=== PATIENT | female | born 1940 | race Caucasian/White ===

== ENCOUNTER 2017-03-23 09:06 | Day surgery (SDC) | payer MEDICARE ==
[~2017-03-23 09:06] MED LIST: Bupivacaine 0.5%/EPINEPHrine 1:200,000 50 ML MDV ONE
[2017-03-23] MEDS ORDERED: Sodium Chloride 0.9% 1,000 ML IV SCH (09:30)
[2017-03-23] MEDS ORDERED: fentaNYL 250 MCG/5 ML SDV ONE (09:35)
[2017-03-23] MEDS ORDERED: Rocuronium 50 MG/5 ML Vial ONE (09:37)
[2017-03-23] MEDS ORDERED: Succinylcholine/Normal Saline 200 MG/10 ML Syringe ONE (09:37)
[2017-03-23] MEDS ORDERED: Ondansetron 4 MG/2 ML SDV ONE (09:37)
[2017-03-23] MEDS ORDERED: Dexamethasone 4 MG/ML SDV ONE (09:37)
[2017-03-23] MEDS ORDERED: Propofol 200 MG/20 ML SDV ONE (09:37)
[2017-03-23] MEDS ORDERED: Neostigmine Methylsulfate 1 MG/ML 5 ML Syringe ONE (09:37)
[2017-03-23] MEDS ORDERED: metroNIDAZOLE/Normal Saline 500 MG in Premix Bag 1 BAG IV ONE (10:00)
[2017-03-23] MEDS ORDERED: Ciprofloxacin in D5W 400 MG in Premix Bag 1 BAG IV ONE ×2 (10:00)
[2017-03-23] MEDS ORDERED: Ketorolac 60 MG/2 ML SDV ONE (10:14)
[2017-03-23] MEDS ORDERED: hydrOXYzine HCl 50 MG/ML SDV IM ONE (13:51)
[2017-03-23] MEDS ORDERED: fentaNYL 100 MCG/2 ML SDV IVPUSH ONE (14:02)
[2017-03-23] MEDS ORDERED: Morphine 2 MG/ML Syringe IV PRN (15:29)
[2017-03-23] MEDS ORDERED: oxyCODONE 5 MG Tab PO PRN (15:30)
[2017-03-23 15:57] VITALS: BP 137/86
--- NOTE | 2017-03-26 07:49 | OR ---
DATE OF PROCEDURE: 03/23/2017 PREOPERATIVE DIAGNOSIS: Abdominal Adhesions POSTOPERATIVE DIAGNOSIS: Abdominal Adhesions PROCEDURES: 1. Lysis of adhesions, abdominal, laparoscopic, [id number]. 2. Exploratory laparotomy. FINDINGS: Adhesions causing chronic pain with respect to the midline and adherence to small bowel. COMPLICATIONS: None. FEED HOUSE SUPERVISOR: None. ANESTHESIA: General/local. INDICATIONS: A 76-year-old female, who has had lysis of adhesions performed prior, which alleviated her pain. She requires similar procedure. Risks, benefits, alternatives, and limitations, including, but not limited to infection, bleeding, and injury to abdominal structures such as bowel, bladder, blood vessels were explained to the patient, and she wishes to proceed. PROCEDURE IN DETAIL: The patient was placed in supine position. The abdomen was prepped and draped in the right midabdomen. A Veress needle was used to enter the abdomen without abnormality. This was then insufflated. This was followed by an Optiview trocar, which showed no evidence of enterotomy or injury. After this, 2 additional 5-mm ports were entered under direct visualization. Diagnostic laparoscopy was then commenced. The patient is known to have adhesions in both left and right midabdomen, but mostly associated with the midline hernia repair. Lysis of adhesions was performed using a combination of electrocautery and sharp and blunt dissection. Minimal bleeding was controlled with electrocautery. At no time was the bowel or bladder interacted any way with respect to energy sources. The bowel was ran in its entirety. There was no evidence of obstruction or abnormality except for adhesion that is associated with the midline, which was transected previously. No evidence of enterotomy or other injury was noted. The air was deflated. The wounds were closed with 3-0 Vicryl and 4-0 Vicryl interrupted running fashion, Dermabond was applied. The patient tolerated the procedure well. Ricardo Rodríguez MD /[id number]
== END 2017-03-23 17:30 | disposition home or self-care (01) ==
LOC: JP.SDS 09:06 → EDSTATUS 13:30 → JP.2SS 14:45 → UNDOADMIN 15:25 → UNDODISIN 17:30 → JP.SDS 17:30
PROVIDERS: ATTEND Surgery
PROC: 0DN84ZZ Release Small Intestine, Percutaneous Endoscopic Approach (ICD-10-PCS; principal; 2017-03-23)
DX: K66.0 Peritoneal adhesions (postprocedural) (postinfection) (principal); G89.28 Other chronic postprocedural pain; I70.1 Atherosclerosis of renal artery; I10 Essential (primary) hypertension; E78.5 Hyperlipidemia, unspecified; Z98.0 Intestinal bypass and anastomosis status; Z98.84 Bariatric surgery status; M81.0 Age-related osteoporosis without current pathological fracture
CPT/HCPCS: 49329; A9270; J0744; J1100; J2270; J2405; J2704; J3010; J3410; J7040; J1885

== ENCOUNTER → 2017-12-13 | Day surgery (SDC) | payer MEDICARE, BC ==
[~2017-12-13] MED LIST changes: -Bupivacaine 0.5%/EPINEPHrine 1:200,000 50 ML MDV ONE; +Lactated Ringers 1,000 ML IV SCH; +Propofol 200 MG/20 ML SDV ONE; +ceFAZolin 2 GM in Premix Bag 1 BAG IV ONE
[2017-12-13 11:29] VITALS: BP 153/66
--- NOTE | 2017-12-14 07:38 | OR ---
DATE OF PROCEDURE: 12/13/2017 PROCEDURE: EGD. FINDINGS: 1. Inflammation at the gastrojejunal anastomosis consistent with esophagitis. 2. No evidence of narrowing, stricture, or ulceration with respect to the Kezia-en-Y limb. COMPLICATIONS: None. BROACH OPERATOR: None. PREOPERATIVE DIAGNOSIS: Epigastric pain. POSTOPERATIVE DIAGNOSIS: Epigastric pain. RISKS: Risks, benefits, alternatives, limitations including, but not limited to infection, bleeding, and perforation were explained to the patient and wished to proceed. PROCEDURE IN DETAIL: The patient was placed in left lateral decubitus position. The EGD scope was introduced and advanced atraumatically into the Kezia-en-Y limb. The limb itself showed normal architecture and color. No evidence of inflammation was noted. There was no stricture or narrowing of the gastrojejunal anastomosis. The pouch was appropriately sized albeit a little large, but no evidence of ulceration. The esophagus showed inflammation, consistent with esophagitis in a plaque-like appearance. This was not pathognomic consisted with yeast thrush infection; however, cold biopsy forceps were used to biopsy this area. The remainder of the esophagus was normal. The patient tolerated the procedure well. Ricardo Rodríguez MD /[id number]
== END ==
LOC: JP.SDS 08:06
PROVIDERS: ATTEND Surgery
DX: K21.0 Gastro-esophageal reflux disease with esophagitis (principal); Z88.0 Allergy status to penicillin; Z88.8 Allergy status to other drugs, medicaments and biological substances
CPT/HCPCS: 88305; 88312; J0690; J2704; J7120

== ENCOUNTER 2017-12-14 15:15 | Emergency (ER) | payer MEDICARE, BC ==
[2017-12-14 15:35] VITALS: BP 165/89
--- NOTE | 2017-12-14 16:09 | EDM.PDOC ---
ED HPI GENERAL MEDICAL PROBLEM - General Chief Complaint: General Stated Complaint: HAD ARM & CHEST PAIN/WANTS TO GET IN SOONER Time Seen by Provider: 12/14/17 15:45 Source of Information: Reports: Patient, Family History Limitations: Reports: No Limitations - History of Present Illness INITIAL COMMENTS - FREE TEXT/NARRATIVE: 77-year-old female that's been having intermittent chest pain, some difficulty with swallowing who had an EGD performed yesterday without any real significant findings. She called her agricultural economics professor to ask if she could get in earlier than next month when she has her normal appointment. She told the agricultural economics professor she had some significant left arm pain for about 4 hours 2 days ago, so her agricultural economics professor told her to come here for evaluation. She has had no symptoms since yesterday. She feels fine. Onset: Sudden (Pain started suddenly 2 mornings ago) Duration: Hour(s): (Pain lasted for 5 hours and then resolved abruptly) Location: Reports: Upper Extremity, Left Quality: Reports: Ache, Throbbing Severity: Moderate Worsens with: Reports: Movement Associated Symptoms: Reports: Shortness of Breath. Denies: Chest Pain, Cough, Fever/Chills, Headaches, Nausea/Vomiting - Related Data Allergies Allergy/AdvReac Type Severity Reaction Status Date / Time hydrocodone [Hydrocodone] Allergy Itching Verified 12/14/17 15:33 Penicillins Allergy Swelling Verified 12/14/17 15:33 Home Meds: Home Meds Losartan [Cozaar] 50 mg PO BEDTIME 06/07/13 [History] Nitroglycerin [Nitrostat] 0.4 mg SL ASDIRECTED PRN 06/07/13 [History] Amitriptyline [Elavil] 25 mg PO BEDTIME 01/09/14 [History] Aspirin [Adult Low Dose Aspirin EC] 81 mg PO DAILY 01/09/14 [History] Cyanocobalamin (Vitamin B-12) [Vitamin B-12] 1,000 mcg SL DAILY 01/09/14 [ History] Magnesium Oxide [Magnesium] 400 mg PO BID 01/09/14 [History] Sertraline [Zoloft] 150 mg PO DAILY 01/09/14 [History] Multivits,Th w-Fe,Other Min [Qqzwxivq-H-H with Minerals] 1 tab PO BID 09/22/15 [ History] Calcium Carbonate/Vitamin D3 [Calcium 500 + Vit D 400] 1 each PO DAILY 03/21/17 [History] Clopidogrel [Plavix] 75 mg PO DAILY 12/11/17 [History] Levothyroxine [Synthroid] 50 mcg PO ACBREAKFAST 12/11/17 [History] Melatonin 5 mg PO BEDTIME 12/11/17 [History] Metoprolol Succinate [Toprol XL] 25 mg PO DAILY 12/11/17 [History] Pantoprazole Sodium [Protonix] 40 mg PO DAILY 12/11/17 [History] atorvaSTATin [Lipitor] 80 mg PO BEDTIME 12/11/17 [History] Past Medical History HEENT History: Reports: Cataract, Impaired Vision Cardiovascular History: Reports: Hypertension, Stents Other Cardiovascular History: 1 stent- 2006 Gastrointestinal History: Reports: GERD, Hiatal Hernia Genitourinary History: Reports: UTI, Recurrent Other Genitourinary History: 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: Musculoskeletal History: Reports: Neck Pain, Chronic, Osteoarthritis Neurological History: Reports: Headaches, Chronic Psychiatric History: Reports: Depression Endocrine/Metabolic History: Reports: Osteoporosis Hematologic History: Reports: Blood Transfusion(s) Immunologic History: Reports: None - Infectious Disease History Infectious Disease History: Reports: Chicken Pox, Measles, Mumps - Past Surgical History HEENT Surgical History: Reports: Cataract Surgery Cardiovascular Surgical History: Reports: Coronary Artery Stent GI Surgical History: Reports: Bariatric Procedure, Colonoscopy, EGD, Hernia, Abdominal, Ivet Fundoplication, Other (See Below) Other GI Surgeries/Procedures: adhesions surgery after ivet and rerouting of the esophgus, partial gastrectomy and RNY. Laparoscopic ventral Hernia repair w / lysis of adhesions 03/16/2016 Female Surgical History: Reports: Hysterectomy, Salpingo-Oophorectomy Neurological Surgical History: Reports: Other (See Below) Other Neurological Surgeries/Procedures: cervical fusion Musculoskeletal Surgical History: Reports: Knee Replacement Social & Family History - Tobacco Use Smoking Status *Q: Never Smoker Second Hand Smoke Exposure: No - Caffeine Use Caffeine Use: Reports: Coffee - Alcohol Use Days Per Week of Alcohol Use: 0 - Recreational Drug Use Recreational Drug Use: No ED ROS GENERAL - Review of Systems Review Of Systems: See Below Constitutional: Denies: Fever, Chills Respiratory: Reports: Shortness of Breath (Some mild shortness of breath when she had her pain) Cardiovascular: Reports: Chest Pain (Intermittent chest pain none currently) GI/Abdominal: Reports: Other (Difficulty with swallowing for the past several months). Denies: Abdominal Pain Skin: Reports: Bruising (Some bruising on her arms from recent IVs) Neurological: Denies: Headache Psychiatric: Reports: No Symptoms ED EXAM, GENERAL - Physical Exam Exam: See Below Exam Limited By: No Limitations General Appearance: Alert, No Apparent Distress Respiratory/Chest: No Respiratory Distress, Lungs Clear Cardiovascular: Regular Rate, Rhythm, Other (Monitor shows normal sinus rhythm) . No: Extra Beats GI/Abdominal: Soft, Non-Tender Extremities: No: Pedal Edema Neurological: Alert, Oriented Course - Vital Signs Last Recorded V/S: Last Vital Signs Temp 97.3 F 12/14/17 15:36 Pulse 80 12/14/17 15:36 Resp 14 12/14/17 15:36 BP 165/89 H 12/14/17 15:36 Pulse Ox 97 12/14/17 15:36 - Orders/Labs/Meds Labs: Laboratory Tests 12/14/17 Range/Units 16:10 Troponin I < 0.017 (0.000-0.056) ng/mL - Re-Assessments/Exams Free Text/Narrative Re-Assessment/Exam: 12/14/17 16:09 Explained to the patient that we can draw a troponin which will tell us if she had an ID 2 days ago, but if it is negative I may not be able to tell her what the pain was. This lab was drawn. 12/14/17 16:39 Troponin was 0. With the symptoms being completely gone it's hard to predict what they were from but it does not appear to be an ID. Patient will follow up as scheduled. Departure - Departure Time of Disposition: 17:11 Disposition: Home, Self-Care 01 Condition: Good Clinical Impression: Left upper limb pain - Discharge Information Instructions: Muscle Pain, Adult Referrals: Ronni Velazquez MD [Primary Care Provider] - Forms: ED Department Discharge Care Plan Goals: Continue your current medications, and recheck as scheduled. You can talk to your agricultural economics professor about an earlier visit and let them know you were checked out from your recent pain.
== END 2017-12-14 17:11 | disposition home or self-care (01) ==
LOC: JP.ED 15:15
DX: M79.622 Pain in left upper arm (principal); I10 Essential (primary) hypertension; K21.9 Gastro-esophageal reflux disease without esophagitis; Z88.0 Allergy status to penicillin; Z88.5 Allergy status to narcotic agent; Z79.82 Long term (current) use of aspirin; Z79.899 Other long term (current) drug therapy
CPT/HCPCS: 36415; 84484; 99285

== ENCOUNTER 2021-03-21 19:47 | Emergency (ER) | payer MEDICARE, BC ==
[2021-03-21 20:34] VITALS: BP 136/71; PULSE 71
--- NOTE | 2021-03-21 21:24 | EDM.PDOC ---
ED HPI GENERAL MEDICAL PROBLEM - General Chief Complaint: Cardiovascular Problem Stated Complaint: LOW BLOOD PRESSURE Time Seen by Provider: 03/21/21 20:00 Source of Information: Reports: Patient, Family History Limitations: Reports: No Limitations - History of Present Illness INITIAL COMMENTS - FREE TEXT/NARRATIVE: 80-year-old female with chronic chest pain, chronic fatigue and weakness is being worked up by oncology, cardiology and several other physicians and is recurring chest pain on a regular basis. Tonight it seemed a little more intense so she took 2 nitroglycerin and became very lightheaded and dizzy. She was just at the doctor earlier today and has another appointment on . No nausea or vomiting, no fever, no cough. Treatments TELEVISION INSPECTOR: Reports: Nitroglycerin - Related Data Allergies Allergy/AdvReac Type Severity Reaction Status Date / Time hydrocodone [Hydrocodone] Allergy Itching Verified 03/21/21 19:55 Penicillins Allergy Swelling Verified 03/21/21 19:55 Home Meds: Home Meds Losartan [Cozaar] 50 mg PO BEDTIME 06/07/13 [History] Nitroglycerin [Nitrostat] 0.4 mg SL ASDIRECTED PRN 06/07/13 [History] Amitriptyline [Elavil] 25 mg PO BEDTIME 01/09/14 [History] Aspirin [Adult Low Dose Aspirin EC] 81 mg PO DAILY 01/09/14 [History] Cyanocobalamin (Vitamin B-12) [Vitamin B-12] 1,000 mcg SL DAILY 01/09/14 [History] Magnesium Oxide [Magnesium] 400 mg PO BID 01/09/14 [History] Multivit-Min/Ferrous Fumarate [Utlmlwar-U-B with Minerals] 1 tab PO BID 06/29/15 [History] Calcium Carbonate/Vitamin D3 [Calcium 500 + Vit D 400] 1 each PO DAILY 03/21/17 [History] Levothyroxine [Synthroid] 50 mcg PO ACBREAKFAST 12/11/17 [History] Melatonin 5 mg PO BEDTIME 12/11/17 [History] Metoprolol Succinate [Toprol XL] 25 mg PO DAILY 12/11/17 [History] Isosorbide Mononitrate [Imdur] 15 mg PO DAILY 03/21/21 [History] amLODIPine [Norvasc] 5 mg PO DAILY 03/21/21 [History] Past Medical History HEENT History: Reports: Cataract, Impaired Vision Cardiovascular History: Reports: Hypertension, Stents Other Cardiovascular History: 1 stent- 2006 Gastrointestinal History: Reports: GERD, Hiatal Hernia Genitourinary History: Reports: UTI, Recurrent Other Genitourinary History: 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: Musculoskeletal History: Reports: Neck Pain, Chronic, Osteoarthritis Neurological History: Reports: Headaches, Chronic Psychiatric History: Reports: Depression Endocrine/Metabolic History: Reports: Osteoporosis Hematologic History: Reports: Blood Transfusion(s) Immunologic History: Reports: None - Infectious Disease History Infectious Disease History: Reports: Chicken Pox, Measles, Mumps - Past Surgical History HEENT Surgical History: Reports: Cataract Surgery Cardiovascular Surgical History: Reports: Coronary Artery Stent GI Surgical History: Reports: Bariatric Procedure, Colonoscopy, EGD, Hernia, Abdominal, Ivet Fundoplication, Other (See Below) Other GI Surgeries/Procedures: adhesions surgery after ivet and rerouting of the esophgus, partial gastrectomy and RNY. Laparoscopic ventral Hernia repair w/ lysis of adhesions 03/16/2016 Female Surgical History: Reports: Hysterectomy, Salpingo-Oophorectomy Endocrine Surgical History: Reports: None Neurological Surgical History: Reports: Other (See Below) Other Neurological Surgeries/Procedures: cervical fusion Musculoskeletal Surgical History: Reports: Knee Replacement Social & Family History - Family History Family Medical History: No Pertinent Family History - Tobacco Use Tobacco Use Status *Q: Never Tobacco User - Caffeine Use Caffeine Use: Reports: Coffee - Recreational Drug Use Recreational Drug Use: No ED ROS GENERAL - Review of Systems Review Of Systems: See Below Constitutional: Reports: Malaise. Denies: Fever, Chills HEENT: Denies: Vision Change Respiratory: Denies: Shortness of Breath Cardiovascular: Reports: Chest Pain. Denies: Palpitations GI/Abdominal: Reports: Decreased Appetite. Denies: Abdominal Pain, Vomiting : Reports: No Symptoms Musculoskeletal: Reports: No Symptoms Skin: Reports: Pallor Neurological: Reports: Dizziness, Weakness Psychiatric: Reports: Anxiety ED EXAM, GENERAL - Physical Exam Exam: See Below Exam Limited By: No Limitations General Appearance: Alert, No Apparent Distress Eye Exam: Bilateral Eye: Normal Inspection Head: Atraumatic Neck: Supple, Non-Tender Respiratory/Chest: No Respiratory Distress, Lungs Clear, Other (I could not reproduce chest wall pain with palpation) Cardiovascular: Regular Rate, Rhythm. No: Tachycardia GI/Abdominal: Normal Bowel Sounds, Soft, Non-Tender Extremities: Normal Inspection. No: Pedal Edema Neurological: Alert, Oriented Course - Vital Signs Last Recorded V/S: Last Vital Signs Temp 97.1 F 03/21/21 19:52 Pulse 71 03/21/21 20:32 Resp 22 H 03/21/21 20:32 BP 136/71 03/21/21 20:32 Pulse Ox 96 03/21/21 20:32 - Orders/Labs/Meds Orders: Active Orders 24 hr Category Date Time Status CBC WITH AUTO DIFF [HEME] Stat Lab 03/21/21 20:28 Results Labs: Laboratory Tests 03/21/21 03/21/21 Range/Units 20:28 20:28 WBC 4.5 (4.5-11.0) K/uL RBC 3.63 (3.30-5.50) M/uL Hgb 8.7 L D (12.0-15.0) g/dL Hct 29.1 L (36.0-48.0) % MCV 80 (80-98) fL MCH 24 L (27-31) pg MCHC 30 L (32-36) % Plt Count 163 (150-400) K/uL Add Manual Diff Yes Sodium 141 (140-148) mmol/L Potassium 5.1 (3.6-5.2) mmol/L Chloride 110 H (100-108) mmol/L Carbon Dioxide 21 (21-32) mmol/L Anion Gap 15.1 H (5.0-14.0) mmol/L BUN 40 H D (7-18) mg/dL Creatinine 1.2 H (0.6-1.0) mg/dL Est Cr Clr Drug Dosing 31.75 mL/min Estimated GFR (MDRD) 43 L (>60) Glucose 84 (74-106) mg/dL Calcium 8.3 L (8.5-10.1) mg/dL Troponin I < 0.017 (0.000-0.056) ng/mL - Re-Assessments/Exams Free Text/Narrative Re-Assessment/Exam: 03/21/21 21:54 Troponin was 0, patient was monitored for over an hour and was stable. The rest of her labs showed some renal insufficiency which may be her baseline, no previous labs are available. Patient was anxious to go home, was discharged with instructions to return if worsening or concerns Departure - Departure Time of Disposition: 21:27 Disposition: Home, Self-Care 01 Clinical Impression: Syncope, near, Atypical chest pain, Weakness generalized Instructions: Near-Syncope Referrals: Phu Alba MD [Primary Care Provider] - Forms: ED Department Discharge Care Plan Goals: Continue current medications but avoid nitroglycerin if possible. Recheck on as scheduled, or return anytime if worsening or concerns. Sepsis Event Note (ED) - Evaluation Sepsis Screening Result: No Definite Risk - Focused Exam Vital Signs: Vital Signs Temp Pulse Resp BP Pulse Ox 03/21/21 20:32 71 22 H 136/71 96 03/21/21 19:52 97.1 F 78 19 151/77 H 96 03/21/21 19:47 76 151/77 H 100 - My Orders Last 24 Hours: My Active Orders 03/21/21 20:28 CBC WITH AUTO DIFF [HEME] Stat - Assessment/Plan Last 24 Hours: My Active Orders 03/21/21 20:28 CBC WITH AUTO DIFF [HEME] Stat
== END 2021-03-21 21:32 | disposition home or self-care (01) ==
LOC: JP.ED 19:47
DX: R07.89 Other chest pain (principal); R55 Syncope and collapse; R53.1 Weakness; I10 Essential (primary) hypertension; Z79.82 Long term (current) use of aspirin; Z79.899 Other long term (current) drug therapy; Z88.0 Allergy status to penicillin; Z88.5 Allergy status to narcotic agent
CPT/HCPCS: 36415; 80048; 84484; 85025; 99284

== ENCOUNTER 2022-07-11 19:05 | Emergency (ER) | payer MEDICARE, BC ==
[2022-07-11] MEDS ORDERED: Phenylephrine 1% 10 MG/ML SDV ONE (20:30)
[2022-07-11] MEDS ORDERED: Sodium Chloride 0.9% 1,000 ML IV ONE (20:45)
== END 2022-07-11 21:13 ==
LOC: JP.ED 19:05
DX: R04.0 Epistaxis (principal)
CPT/HCPCS: 30903; 36415; 85027; 99284; J2370; J7030

== ENCOUNTER 2022-10-22 19:17 | Emergency (ER) | payer MEDICARE, BC ==
[2022-10-22] MEDS ORDERED: HYDROmorphone 0.5 MG/0.5 ML Syringe IM STA (19:36)
[2022-10-22] MEDS ORDERED: HYDROmorphone 0.5 MG/0.5 ML Syringe IVPUSH STA (19:40)
[2022-10-22] MEDS ORDERED: Lidocaine 5% 700 MG Patch TRDERM STA (21:33)
[2022-10-22] MEDS ORDERED: HYDROmorphone 2 MG Tab PO STA (22:01)
[2022-10-22 22:08] VITALS: BP 149/126; PULSE 76
== END 2022-10-22 22:36 | disposition home or self-care (01) ==
LOC: JP.ED 19:17
DX: S22.078A Other fracture of T9-T10 vertebra, initial encounter for closed fracture (principal); I10 Essential (primary) hypertension; Z88.5 Allergy status to narcotic agent; Z88.0 Allergy status to penicillin; Z79.899 Other long term (current) drug therapy; Z79.82 Long term (current) use of aspirin; Z90.710 Acquired absence of both cervix and uterus; W18.39XA Other fall on same level, initial encounter
CPT/HCPCS: 72128; 96374; 99284; A9270; J1170; 99282